=== PATIENT | male | born 1970 | race Caucasian/White ===

== ENCOUNTER 2022-06-29 19:38 | Outpatient (CLI) | payer OTHER | END 2022-06-29 19:39 | disposition critical access hospital (66) | LOC: EMS 19:38 | DX: R46.89 Other symptoms and signs involving appearance and behavior (principal); R41.82 Altered mental status, unspecified; Y92.59 Other trade areas as the place of occurrence of the external cause; Z72.89 Other problems related to lifestyle | CPT/HCPCS: A0425; A0429 ==

== ENCOUNTER 2022-06-29 20:40 | Emergency (ER) | payer OTHER ==
--- NOTE | 2022-06-29 20:37 | ED Physician Documentation ---
History of Present Illness - Stated complaint Stated Complaint: ETOH/AMS - History obtained from History obtained from: EMS, Other (patient unable to provide any meaningful/reliable (including HPI/ROS) due to AMS and subsequent belligerent behavior) - History of Present Illness Timing: Unknown - Additonal information Additional information: BIBA. Patient was found on ground outside of a local bar. Per EMS and security police (in ED), patient had been asked to leave the establishment a few times. He was subsequently found on the ground outside the bar; no witnessed fall. Per EMS , patient was unresponsive including to painful stimulus (sternal rub). By the time he arrives to ED, he is awake, alert, but confused; most of his answers to my questions do not make sense or otherwise are "I don't know". He becomes increasingly angry as I explain to him that we need to do tests. Review of Systems Unable to obtain: AMS, Uncooperative PD PAST MEDICAL HISTORY - Past Medical History Cardiovascular: Pulmonary embolism - Present Medications Home Medications: Ambulatory Orders Medication Instructions Recorded Confirmed Home Medications Unobtainable 06/30/22 06/30/22 [HOME MEDICATIONS UNOBTAINABLE] - Allergies Allergies/Adverse Reactions: Allergies Allergy/AdvReac Type Severity Reaction Status Date / Time No Known Drug Allergies Allergy Verified 06/29/22 20:52 PD ED PE NORMAL - Vitals Vital signs reviewed: Yes - General General: No acute distress, Well developed/nourished, Other (awake, alert, oriented to self only) - HEENT HEENT: Atraumatic, PERRL, EOMI, Moist mucous membranes - Neck Neck: No bony TTP - Cardiac Cardiac: RRR, No murmur - Respiratory Respiratory: No respiratory distress, Clear bilaterally - Abdomen Abdomen: Soft, Non tender - Back Back: No spinal TTP - Derm Derm: Normal color, Warm and dry - Extremities Extremities: Normal ROM s pain, No edema - Neuro Neuro: 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, No motor deficit Eye Opening: Spontaneous Motor: Obeys Commands Verbal: Confused GCS Score: 14 Results - Vitals Vitals: Vital Signs - 24 hr 06/29/22 06/29/22 06/29/22 20:41 20:54 21:24 Temperature 36.4 C L Heart Rate 106 H 132 H 100 Respiratory 20 25 H 21 Rate Blood Pressure 160/95 H 166/76 H 153/87 H O2 Saturation 97 96 96 If not protocol : Oxygen Flow, liters/minute 06/29/22 06/29/22 06/29/22 21:56 22:30 23:00 Temperature Heart Rate 100 80 Respiratory 21 17 Rate Blood Pressure 153/87 H 133/75 H O2 Saturation 96 85 L 95 If not protocol 2 : Oxygen Flow, liters/minute 06/30/22 06/30/22 06/30/22 00:00 00:24 00:26 Temperature Heart Rate 91 74 76 Respiratory 17 19 16 Rate Blood Pressure 129/84 H 127/75 127/75 O2 Saturation 100 99 95 If not protocol 2 4 : Oxygen Flow, liters/minute 06/30/22 06/30/22 06/30/22 00:30 01:31 02:38 Temperature 36.9 C 36.6 C Heart Rate 73 69 70 Respiratory 12 17 18 Rate Blood Pressure 127/75 106/64 O2 Saturation 90 L 95 95 If not protocol 4 2 : Oxygen Flow, liters/minute 06/30/22 06/30/22 06/30/22 03:00 04:00 05:00 Temperature Heart Rate 64 67 76 Respiratory 17 17 17 Rate Blood Pressure 112/67 113/64 117/65 O2 Saturation 98 99 98 If not protocol 2 2 : Oxygen Flow, liters/minute 06/30/22 06/30/22 06/30/22 06:45 07:00 08:24 Temperature 37.0 C Heart Rate 73 68 74 Respiratory 19 14 16 Rate Blood Pressure 108/63 92/58 L 99/54 L O2 Saturation 97 98 95 If not protocol : Oxygen Flow, liters/minute Oxygen O2 Source Room air - EKG (time done) No standard instances Rate: Rate (enter#) (110), Tachy Rhythm: NSR [place]: Normal Intervals: Normal AR QRS: Normal Ischemia: Normal ST segments - Labs Labs: Laboratory Tests 06/29/22 06/29/22 06/29/22 21:07 21:07 21:07 WBC 5.9 RBC 4.67 L Hgb 15.2 Hct 44.6 MCV 95.5 H MCH 32.5 H MCHC 34.1 RDW 13.5 Plt Count 257 MPV 8.9 Neut # (Auto) 3.5 Lymph # (Auto) 1.7 Union # (Auto) 0.4 Eos # (Auto) 0.1 Baso # (Auto) 0.1 Absolute Nucleated RBC 0.00 Nucleated RBC % 0.0 PT 30.5 H INR 2.9 H Sodium 138 Potassium 3.4 L Chloride 100 L Carbon Dioxide 21 Anion Gap 17.0 H BUN 7 Creatinine 0.8 Estimated GFR (MDRD) 102 Glucose 121 H Calcium 8.3 L Total Bilirubin 0.6 AST 23 ALT 22 Alkaline Phosphatase 73 Total Protein 7.8 Albumin 4.6 Globulin 3.2 Albumin/Globulin Ratio 1.4 Lipase 56 H Urine Color Urine Clarity Urine pH Ur Specific [place] Urine Protein Urine Glucose (UA) Urine Ketones Urine Occult Blood Urine Nitrite Urine Bilirubin Urine Urobilinogen Ur Leukocyte Esterase Ur Microscopic Review Urine Culture Comments Urine Opiates Screen Ur Oxycodone Screen Urine Methadone Screen Ur Propoxyphene Screen Ur Barbiturates Screen Ur Tricyclics Screen Ur Phencyclidine Scrn Ur Amphetamine Screen U Methamphetamines Scrn U Benzodiazepines Scrn Urine Cocaine Screen U Cannabinoids Screen Ethyl Alcohol 383.1 06/29/22 06/29/22 23:36 23:50 WBC RBC Hgb Hct MCV MCH MCHC RDW Plt Count MPV Neut # (Auto) Lymph # (Auto) [place] # (Auto) Eos # (Auto) Baso # (Auto) Absolute Nucleated RBC Nucleated RBC % PT INR Sodium Potassium Chloride Carbon Dioxide Anion Gap BUN Creatinine Estimated GFR (MDRD) Glucose Calcium Total Bilirubin AST ALT Alkaline Phosphatase Total Protein Albumin Globulin Albumin/Globulin Ratio Lipase Urine Color YELLOW Urine Clarity CLEAR Urine pH 6.0 Ur Specific [place] 1.010 Urine Protein TRACE Urine Glucose (UA) NEGATIVE Urine Ketones NEGATIVE Urine Occult Blood NEGATIVE Urine Nitrite NEGATIVE Urine Bilirubin NEGATIVE Urine Urobilinogen 0.2 (NORMAL) Ur Leukocyte Esterase NEGATIVE Ur Microscopic Review NOT INDICATED Urine Culture Comments NOT INDICATED Urine Opiates Screen NEGATIVE Ur Oxycodone Screen NEGATIVE Urine Methadone Screen NEGATIVE Ur Propoxyphene Screen NEGATIVE Ur Barbiturates Screen NEGATIVE Ur Tricyclics Screen NEGATIVE Ur Phencyclidine Scrn NEGATIVE Ur Amphetamine Screen NEGATIVE U Methamphetamines Scrn NEGATIVE U Benzodiazepines Scrn NEGATIVE Urine Cocaine Screen NEGATIVE U Cannabinoids Screen NEGATIVE Ethyl Alcohol - Rads (name of study) CTH Radiology: Prelim report reviewed, See rad report CT cervical spine Radiology: Prelim report reviewed, See rad report PD MEDICAL DECISION MAKING - ED course Complexity details: reviewed results, re-evaluated patient, considered differential, d/w patient ED course: Patient initially did not object to testing but when blood was about to be 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 I went into the room and he is still giving mostly odd answers. He says the year is "", he knows he is in a hospital but cannot tell which one. I ask why he is in the hospital and he begins to remove monitoring equipment, saying to me he won't allow any tests. I tell him that they are necessary, as he is clearly confused, possibly fell (having been found on the ground), and takes warfarin (per patient, one of the few things he was able to tell me is that he has "pulmonary embolism" and that he takes warfarin for this). He asks why the tests are necessary, and I repeatedly tried to explain concern regarding head injury when taking warfarin (such as bleeding in the head) as well as concerns as to what caused him to be on the ground unresponsive (when EMS arrived); he repeatedly and consistently interrupts me each time I try to explain, interrupting with the same question I am trying to answer ("why?", "why the tests?"). He begins to throw the EKG leads (he peels from his chest) onto the floor, and then scoots towards end of stretcher despite repeatedly being asked to stay on the stretcher and leave the equipment in place. He required physical and chemical restraint in order to perform necessary tests (to rule out potential life-threatening conditions such as ICH). With zyprexa and then lorazepam , he was sedated adequately to allow for blood tests, UA, and CT head, CT neck. INR is 2.9 and blood ethanol level is .383. He has no other remarkable findings on blood tests. No concerning findings on CTH, CT cervical spine. UDS is negative. He slept for remainder of my ED shift, awakens briefly to voice but drowsy and thus will hold in ED until he is awake, alert, oriented x 3 and without c/o requiring emergent testing/treatment. Care of patient turned over to Dr. Pratt at end of my shift. Departure - Departure Clinical Impression: Alcohol intoxication Qualifiers: Complication of substance-induced condition: with delirium Qualified Code(s): F10.921 - Alcohol use, unspecified with intoxication delirium Instructions: ED Alcohol Intoxication Restraint [id number] - Immediate Situation Face to Face Evaluation Date: 06/29/22 (after zyprexa 5 mg) Face to Face Evaluation Time: 21:39 Restraint Classification: Violent, physical, chemical Restraint Type: Locked extremity, Physical hold - Patient's Reaction & Behaviors Safety: Physically safe, Compliant Harm: Potential harm to others Physical: Fighting restraints Other: Disruption of therapy - Behavioral Condition Attitude: Indifferent Behavior: Uncooperative Orientation: Person Mood: Other (indifferent, flat) Behavioral Condition Comments: must demonstrate that he is sufficiently sedated or else sufficiently calm , cooperative, and oriented x 3 so as to have capacity to understand , and participate in, medical recommendations and decisions - Evaluation Review of Systems: see H+P Pertinent History/Illicit Drugs/Medications/Results: see H+P - Plan Need to Continue or Terminate Violent or Chemical Restraint: exhibits behavior consistent with ability to participate in medical decision making, including verbalizing understanding of reasoning for tests/treatments that are recommended as well as risks/benefits of refusing these tests/treatments
[2022-06-29] MEDS ORDERED: OLANZapine 10 MG VIAL IM ONE ×2 (20:54→21:26)
[2022-06-29 21:14] LABS: BASOPHILS # (AUTO) 0.1 10^3/uL (0.0-0.1); BASOPHILS % (AUTO) 1.4 %; EOSINOPHILS # (AUTO) 0.1 10^3/uL (0.0-0.7); EOSINOPHILS % (AUTO) 2.4 %; HCT - HEMATOCRIT 44.6 % (42.0-52.0); HGB - HEMOGLOBIN 15.2 g/dL (14.0-18.0); LYMPHOCYTES # (AUTO) 1.7 10^3/uL (1.5-3.5); LYMPHOCYTES % (AUTO) 28.8 %; MEAN CORPUSCULAR HEMOGLOBIN 32.5 pg (27.0-31.0); MEAN CORPUSCULAR HGB CONC 34.1 g/dL (32.0-36.0); MEAN CORPUSCULAR VOLUME 95.5 fL (80.0-94.0); MEAN PLATELET VOLUME 8.9 fL (7.4-11.4); MONOCYTES # (AUTO) 0.4 10^3/uL (0.0-1.0); MONOCYTES % (AUTO) 7.5 %; NEUTROPHILS # (AUTO) 3.5 10^3/uL (1.5-6.6); NEUTROPHILS % (AUTO) 59.4 %; PLT - PLATELET COUNT 257 10^3/uL (130-450); RED BLOOD COUNT 4.67 10^6/uL (4.70-6.10); RED CELL DISTRIBUTION WIDTH 13.5 % (12.0-15.0); WHITE BLOOD COUNT 5.9 x10^3/uL (4.8-10.8)
[2022-06-29 21:20] LABS: INR 2.9 (0.8-1.2); PT - PROTHROMBIN TIME 30.5 secs (9.9-12.6)
[2022-06-29 21:28] LABS: ALBUMIN 4.6 g/dL (3.2-5.5); ALBUMIN/GLOBULIN RATIO 1.4 (1.0-2.2); BILIRUBIN,TOTAL 0.6 mg/dL (0.2-1.0); CALCIUM 8.3 mg/dL (8.5-10.3); CREATININE 0.8 mg/dL (0.6-1.2); ETOH - ETHANOL 383.1 mg/dL; POTASSIUM 3.4 mmol/L (3.5-5.0); TOTAL PROTEIN 7.8 g/dL (6.7-8.2)
[2022-06-29] MEDS ORDERED: LORazepam 2 MG/ML VIAL IVP STA (22:07)
[2022-06-29] MEDS ORDERED: LORazepam 2 MG/ML VIAL ONE (22:07)
--- NOTE | 2022-06-29 22:46 | ED Physician Documentation ---
Restraint [id number] - Immediate Situation Face to Face Evaluation Date: 06/29/22 Face to Face Evaluation Time: 22:43 Restraint Classification: Violent, physical, chemical Restraint Type: Locked extremity - Patient's Reaction & Behaviors Safety: Physically safe Harm: Potential harm to others Physical: Fighting restraints Other: Disruption of therapy - Behavioral Condition Attitude: Indifferent Behavior: Uncooperative Orientation: Person, Place Mood: Other (indifferent) - Evaluation Review of Systems: see H+P Pertinent History/Illicit Drugs/Medications/Results: see H+P - Plan Need to Continue or Terminate Violent or Chemical Restraint: exhibits behavior consistent with ability to participate in medial decision making processes including adequate verbalization of understanding of risks/benefits of recommended tests/treatments, as well as refusal of these tests/treatments
--- NOTE | 2022-06-29 23:03 | CT Report ---
PROCEDURE: HEAD WO INDICATIONS: AMS TECHNIQUE: Noncontrast 4.5 mm thick angled axial sections acquired from the foramen magnum to the vertex. For r adiation dose reduction, the following was used: automated exposure control, adjustment of mA and/or kV according to patient size. COMPARISON: None available. FINDINGS: Image quality: Evaluation is limited by motion artifact. CSF spaces: Basal cisterns are patent. No extra-axial fluid collections. Ventricles are normal in size and shape. Brain: No intracranial hemorrhage, mass, or mass effect. Garcia-white matter interface appears preser claudia. Skull and face: Calvarium and visualized facial bones are intact, without suspicious lesions. Sinuses: Visualized sinuses demonstrate mild mucosal thickening within the ethmoid sinuses. Mastoid air cells are clear. IMPRESSION: 1. No acute intracranial abnormality. Reviewed by: Scout Lizarraga MD on 06/29/2022 11:02 PM PDT Approved by: Scout Lizarraga MD on 06/29/2022 11:02 PM PDT Station ID: [id number]
--- NOTE | 2022-06-29 23:05 | CT Report ---
PROCEDURE: CERVICAL SPINE WO INDICATIONS: AMS, possible fall TECHNIQUE: Noncontrast 3 mm thick sections acquired from the skull base to the T4 level. Sagittal and coronal r eformats were then constructed. For radiation dose reduction, the following was used: automated exp osure control, adjustment of mA and/or kV according to patient size. COMPARISON: None. FINDINGS: Image quality: There is mild motion artifact limiting evaluation. Bones: No definite fractures or subluxation. There is multilevel degenerative disc disease and facet arthropathy. Visualized superior ribs are intact. Soft tissues: Prevertebral soft tissues are normal in thickness. No paravertebral hematomas. No ap ical pneumothoraces. IMPRESSION: 1. No definite fracture or subluxation. Reviewed by: Scout Lizarraga MD on 06/29/2022 11:04 PM PDT Approved by: Scout Lizarraga MD on 06/29/2022 11:04 PM PDT Station ID: [id number]
[2022-06-29 23:50] LABS: BILIRUBIN,URINE NEGATIVE (NEGATIVE); GLUCOSE, URINE (UA) NEGATIVE (NEGATIVE); KETONES,URINE (UA) NEGATIVE (NEGATIVE); LEUKOCYTE ESTERASE, URINE NEGATIVE (NEGATIVE); NITRITE,URINE NEGATIVE (NEGATIVE); OCCULT BLOOD,URINE NEGATIVE (NEGATIVE); PROTEIN,URINE TRACE mg/dL (NEGATIVE); UROBILINOGEN,URINE 0.2 (NORMAL) E.U./dL (NORMAL)
[2022-06-29 23:56] LABS: CLARITY,URINE CLEAR (CLEAR)
[2022-06-30 00:03] LABS: MUDS CUTOFF CONCENTRATIONS CUTOFF CONC BELOW:
[2022-06-30 00:13] LABS: AMPHETAMINE SCREEN,URINE NEGATIVE (NEGATIVE); BARBITURATE SCREEN,UR NEGATIVE (NEGATIVE); BENZODIAZEPINES SCREEN, URINE NEGATIVE (NEGATIVE); COCAINE SCREEN URINE NEGATIVE (NEGATIVE); METHADONE SCREEN, URINE NEGATIVE (NEGATIVE); METHAMPHETAMINES SCREEN, URINE NEGATIVE (NEGATIVE); OPIATE SCREEN, URINE NEGATIVE (NEGATIVE); OXYCODONE SCREEN, URINE NEGATIVE (NEGATIVE); PROPOXYPHENE SCREEN, URINE NEGATIVE (NEGATIVE); THC CANNABINOID SCREEN, URINE NEGATIVE (NEGATIVE); TRICYCLIC ANTIDEPRESSANT,URINE NEGATIVE (NEGATIVE)
--- NOTE | 2022-06-30 10:04 | ED Physician Documentation ---
ED Addendum - Addendum Addendum: 06/30/22 10:03 Patient seen and examined at bedside. Signout from Dr. Nicole at shift change earlier. Now awake alert oriented and without complaints. Requesting discharge. Advised to stay away from the bars. Disposition: Discharged home Condition: Stable Diagnosis: 1. Alcohol intoxication.
[2022-06-30 10:05] VITALS: BP 135/77
== END 2022-06-30 10:21 | disposition home or self-care (01) ==
LOC: ED 20:40
DX: F10.921 Alcohol use, unspecified with intoxication delirium (principal); R41.0 Disorientation, unspecified; Z78.1 Physical restraint status; Z86.711 Personal history of pulmonary embolism; Z79.01 Long term (current) use of anticoagulants
CPT/HCPCS: 36415; 70450; 72125; 80053; 80306; 80320; 81003; 83690; 85025; 85610; 93005; 96372; 96374; 99283; 99285; J2060; 81001; 87086